=== PATIENT | female | born 1985 | race Two or more races ===

== ENCOUNTER 2019-09-05 18:07 | Emergency (ER) | payer MEDICAID ==
[~2019-09-05] VITALS: Ht 167.6 cm; Wt 99.0 kg
[2019-09-05 18:12] VITALS: BP 180/103
== END 2019-09-05 20:04 | disposition home or self-care (01) ==
LOC: ED 19:50
DX: H66.002 Acute suppurative otitis media without spontaneous rupture of ear drum, left ear (principal)
CPT/HCPCS: 99283